=== PATIENT | female | born 1950 | race Caucasian/White ===

== ENCOUNTER 2020-12-29 11:01 | Outpatient (REF) | payer OTHER, SELFPAY ==
[2020-12-29 14:15] LABS: Hematocrit 34.5 % (37-47); Hemoglobin 10.9 g/dl (12.0-16.0); Mean Corpuscular HGB Conc 31.6 g/dl (31.0-35.0); Mean Corpuscular Hemoglobin 33.7 pg (27.0-33.0); Mean Corpuscular Volume 106.8 fL (80-98); Mean Platelet Volume 10.2 fL (9.4-12.3); Platelet Count 424 X10*3/uL (160-400); Red Blood Count 3.23 X10*6/uL (4.20-5.50); Red Cell Distribution Width 15.5 % (11.0-16.0); White Blood Count 9.8 X10*3/uL (4.8-10.8)
[2020-12-29 18:11] LABS: Anion Gap 14 (12-20); Blood Urea Nitrogen 21 mg/dL (9-16); Calcium 8.6 mg/dL (8.4-10.2); Carbon Dioxide 26 mmol/L (22-29); Chloride 105 mmol/L (96-108); Estimated Glomerular Filt Rate 53; Potassium 4.8 mmol/L (3.3-5.1); Sodium 140 mmol/L (135-145)
== END 2020-12-29 11:02 | disposition home or self-care (01) ==
LOC: HO.10HDL 11:01
PROVIDERS: Visit Provider Internal Medicine Hypertension Specialist
DX: N18.2 Chronic kidney disease, stage 2 (mild) (principal)
CPT/HCPCS: 36415; 80051; 82310; 82565; 84520; 85027